=== PATIENT | male | born 1960 | race Caucasian/White ===

== ENCOUNTER 2019-09-05 12:27 | Inpatient (IN) ==
[2019-09-05] MEDS ORDERED: MORPHINE 4 MG/1 ML VIAL IV PRN (14:31)
[2019-09-05] MEDS ORDERED: ONDANSETRON 4 MG/2 ML VIAL IV PRN (14:31)
[2019-09-05] MEDS ORDERED: ALBUTEROL 2.5 MG/3 ML NEB RESP TX PRN (14:31)
[2019-09-05] MEDS ORDERED: NICOTINE 21 MG/24 HR PATCH TRANSDERM PRN (14:31)
[2019-09-05] MEDS ORDERED: diphenhydrAMINE CAP 25 MG CAPSULE PO PRN (14:31)
[2019-09-05] MEDS ORDERED: traZODone 50 MG TABLET PO PRN (14:31)
[2019-09-05] MEDS ORDERED: ZALEPLON 5 MG CAPSULE PO PRN (14:31)
[2019-09-05] MEDS ORDERED: ALBUTEROL/IPRATROPIUM 3 ML NEB RESP TX PRN (14:31)
[2019-09-05] MEDS ORDERED: ACETAMINOPHEN 325 MG TABLET PO PRN (14:31)
[2019-09-05] MEDS ORDERED: guaiFENesin/DM ER 600-30 MG TABLET PO PRN (14:31)
[2019-09-05] MEDS ORDERED: MAGNESIUM SULF RIDER 2 GM in PREMIX 1 EACH IV PRN (14:56)
[2019-09-05] MEDS ORDERED: MAGNESIUM SULF RIDER 4 GM in PREMIX 1 EACH IV PRN (14:56)
[2019-09-05] MEDS ORDERED: LORazepam 2 MG/1 ML VIAL IV PRN (14:58)
[2019-09-05] MEDS ORDERED: SODIUM CHLORIDE 0.9% 1,000 ML IV SCH (15:00)
[2019-09-05] MEDS ORDERED: BISACODYL 10 MG SUPP RECTAL PRN (15:04)
[2019-09-05] MEDS: metroNIDAZOLE INJ 500 MG in PREMIX 1 EACH IV SCH ×2 (15:39→21:40)
[2019-09-05 15:43] LABS: ABG Base Excess 3.1 MMOL/L (-2.5-2.5); ABG HCO3 27.1 MMOL/L (20-26); ABG Oxygen Saturation 95.2 % (95-100); ABG PCO2 47.4 MM HG (35-48); ABG PH 7.393 (7.35-7.45); ABG PO2 77.3 MM HG (80-95); ABG TCO2 25.1 MMOL/L (23-27); Allen Test Positive; Pt O2 Delivery Device Room Air
[2019-09-05] MEDS: LEVOFLOXACIN INJ 500 MG in PREMIX 1 EACH IV SCH (15:45)
[2019-09-05 15:46] LABS: Basophils % 0.6 % (0.0-0.8); Eosinophils % 0.8 % (0.00-10.9); Hematocrit 43.5 VOL% (42.0-52.0); Hemoglobin 13.4 GM/DL (14.0-18.0); Immature Granulocytes % 0.2 %; Immature Granulocytes Absolute 0.01 #; Lymphocytes # 1.2 10*3/uL (1.4-4.0); Lymphocytes % 24.1 % (21.2-54.2); Mean Corpuscular HGB Conc 30.8 GM/DL (32-36); Mean Corpuscular Volume 94.4 FL (87-102); Mean Platelet Volume 12.2 FL (9.6-12.0); Monocytes % 16.2 % (1.7-12.7); Neutrophils % 58.1 % (38.7-73.9); Platelet Count 152 T/CUMM (130-400); Red Blood Count 4.61 MC/CUMM (3.8-5.5); Red Cell Distribution Width 13.3 % (9.3-17.3); White Blood Count 5.1 T/CUMM (4-12)
[2019-09-05] MEDS: FAMOTIDINE 20 MG/2 ML VIAL IV SCH (15:50)
[2019-09-05 16:12] LABS: Albumin 3.4 G/DL (3.4-5.0); Bilirubin,Total 0.4 MG/DL (0.2-1.0); Osmolality,Calculated 294.7 MOS/KG (273-304); Risk Ratio 2.24; Thyroid Stimulating Hormone 3.78 uIU/ml (0.358-3.74); Total Protein 6.4 G/DL (6.4-8.3); VLDL CHOLESTEROL 11.6 MG/DL
[2019-09-05 16:28] LABS: Band Neutrophils 2 % (0-10); Eosinophils 1 % (0-10); Lymphocytes 31 % (20-55); Segmented Neutrophils 53 % (50-85); Total Cells Counted 100
[2019-09-05 16:29] LABS: Platelet Estimate Adequate
[2019-09-05] MEDS: DOPamine 800 MG/250 ML PREMIX IV SCH (17:02)
[2019-09-05] MEDS: DEXTROSE 5% NACL 0.45% 1,000 ML IV SCH (17:52)
[2019-09-05 18:59] LABS: Apearance,Urine CLEAR (Clear); Bilirubin,Urine Negative (Negative); Blood, Urine Negative (Negative); Glucose,Urine (UA) 50 mg/dL (Negative); Ketones,Urine Negative (Negative); Mucus,Urine Occasional /LPF (Occasional); Nitrite,Urine Negative (Negative); Protein,Urine Negative; RBC,Urine 2 /HPF (0-4); Urine Color Amber (Yellow); Urine Specific Gravity 1.026 (1.001-1.035); WBC,Urine 2 /HPF (0-6)
[2019-09-05] MEDS: ERYTHROMYCIN 0.5% OPHT OINT 3.5 GM TUBE BOTH EYES SCH (21:40)
[2019-09-05] MEDS: DOCUSATE SODIUM 100 MG CAPSULE PO SCH (21:40)
[2019-09-06] MEDS ORDERED: SODIUM CHLORIDE 0.9% 500 ML IV ONE (00:26)
[2019-09-06] MEDS: METOCLOPRAMIDE 10 MG/2 ML VIAL IV SCH ×3 (00:53→11:34)
[2019-09-06] MEDS: metroNIDAZOLE INJ 500 MG in PREMIX 1 EACH IV SCH ×4 (03:57→21:32)
[2019-09-06] MEDS: FAMOTIDINE 20 MG/2 ML VIAL IV SCH (03:57)
[2019-09-06 06:07] LABS: Basophils % 0.3 % (0.0-0.8); Eosinophils # 0.1 10*3/uL (0.0-0.87); Eosinophils % 1.6 % (0.00-10.9); Hematocrit 38.1 VOL% (42.0-52.0); Hemoglobin 11.8 GM/DL (14.0-18.0); Immature Granulocytes % 0.3 %; Immature Granulocytes Absolute 0.02 #; Lymphocytes # 1.1 10*3/uL (1.4-4.0); Lymphocytes % 16.4 % (21.2-54.2); Mean Corpuscular Volume 92.5 FL (87-102); Mean Platelet Volume 13.2 FL (9.6-12.0); Monocytes % 14.2 % (1.7-12.7); Neutrophils % 67.2 % (38.7-73.9); Red Blood Count 4.12 MC/CUMM (3.8-5.5); Red Cell Distribution Width 13.1 % (9.3-17.3); White Blood Count 6.8 T/CUMM (4-12)
[2019-09-06 06:09] LABS: Platelet Count 114 T/CUMM (130-400)
[2019-09-06 06:20] LABS: Troponin I 0.119 NG/ML (0.00-0.045)
[2019-09-06 06:21] LABS: Albumin 2.8 G/DL (3.4-5.0); Bilirubin,Total 0.4 MG/DL (0.2-1.0); Osmolality,Calculated 278.7 MOS/KG (273-304); Total Protein 5.8 G/DL (6.4-8.3)
[2019-09-06] MEDS ORDERED: MAGNESIUM SULF RIDER 4 GM in PREMIX 1 EACH IV ONE (06:55)
[2019-09-06] MEDS ORDERED: CALCIUM GLUCONATE 2,000 MG in SODIUM CHLORIDE 0.9% 100 ML IV ONE (07:00)
[2019-09-06] MEDS ORDERED: LINACLOTIDE 145 MCG CAPSULE PO SCH (07:30)
[2019-09-06] MEDS: DEXTROSE 5% NACL 0.45% 1,000 ML IV SCH ×2 (07:39→17:45)
[2019-09-06] MEDS: DOCUSATE SODIUM 100 MG CAPSULE PO SCH (08:21)
[2019-09-06] MEDS: ASPIRIN EC 81 MG TABLET PO SCH (08:21)
[2019-09-06] MEDS ORDERED: LACTULOSE 20 GM/30 ML UDCUP PO SCH (09:00)
[2019-09-06] MEDS: VALPROIC ACID INJ 750 MG in SODIUM CHLORIDE 0.9% 100 ML IV SCH ×2 (11:35→18:02)
[2019-09-06] MEDS: LEVOFLOXACIN INJ 500 MG in PREMIX 1 EACH IV SCH (14:52)
[2019-09-06] MEDS: DOPamine 800 MG/250 ML PREMIX IV SCH (16:10)
[2019-09-06] MEDS ORDERED: METOCLOPRAMIDE 10 MG/10 ML UDCUP PO SCH (16:30)
[2019-09-06] MEDS ORDERED: POTASSIUM CHLORIDE 20 MEQ/15 ML UDCUP PO ONE (18:40)
[2019-09-06] MEDS: ERYTHROMYCIN 0.5% OPHT OINT 3.5 GM TUBE BOTH EYES SCH (21:32)
[2019-09-06] MEDS: METOCLOPRAMIDE 5 MG TABLET PO SCH (21:32)
[2019-09-07] MEDS: VALPROIC ACID INJ 750 MG in SODIUM CHLORIDE 0.9% 100 ML IV SCH ×2 (03:37→12:33)
[2019-09-07] MEDS: metroNIDAZOLE INJ 500 MG in PREMIX 1 EACH IV SCH ×2 (04:21→09:30)
[2019-09-07 04:42] LABS: Basophils % 0.3 % (0.0-0.8); Eosinophils # 0.3 10*3/uL (0.0-0.87); Eosinophils % 3.6 % (0.00-10.9); Hematocrit 34.5 VOL% (42.0-52.0); Immature Granulocytes % 0.3 %; Immature Granulocytes Absolute 0.02 #; Lymphocytes # 1.1 10*3/uL (1.4-4.0); Lymphocytes % 15.7 % (21.2-54.2); Mean Corpuscular HGB Conc 31.9 GM/DL (32-36); Mean Corpuscular Volume 90.6 FL (87-102); Mean Platelet Volume 12.2 FL (9.6-12.0); Monocytes % 11.3 % (1.7-12.7); Neutrophils % 68.8 % (38.7-73.9); Platelet Count 121 T/CUMM (130-400); Red Blood Count 3.81 MC/CUMM (3.8-5.5); Red Cell Distribution Width 13.1 % (9.3-17.3); White Blood Count 7.2 T/CUMM (4-12)
[2019-09-07 06:02] LABS: Albumin 2.5 G/DL (3.4-5.0); Bilirubin,Total 0.4 MG/DL (0.2-1.0); Calcium 7.2 MG/DL (8.5-10.1); Osmolality,Calculated 268.1 MOS/KG (273-304); Total Protein 5.3 G/DL (6.4-8.3)
[2019-09-07] MEDS: METOCLOPRAMIDE 5 MG TABLET PO SCH ×2 (07:30→12:20)
[2019-09-07 07:55] VITALS: BP 103/60
[2019-09-07] MEDS ORDERED: POLYETHYLENE GLYCOL POWDER 17 GM PACK PO SCH (09:00)
[2019-09-07] MEDS: ASPIRIN EC 81 MG TABLET PO SCH (09:30)
== END 2019-09-07 15:02 | disposition home or self-care (01) | DRG 391 ==
LOC: N.CC 12:54 → N.4E 09-06 17:22
PROVIDERS: ADMIT Internal Medicine; ATTEND Hospitalist